=== PATIENT | male | born 1955 | race Caucasian/White ===

== ENCOUNTER 2020-06-17 08:47 | Day surgery (SDC) | payer BC ==
[~2020-06-17 08:47] MED LIST: FLEXERIL PO
[2020-06-17 09:22] VITALS: BP 216/117
[2020-07-08] MEDS ORDERED: METFORMIN500 M2 PO (10:32)
[2020-07-08] MEDS ORDERED: LISINOPRIL5 MG PO (10:32)
== END 2020-06-17 09:20 | disposition still patient (30) | DRG 951 ==
LOC: ENDO 08:47
PROVIDERS: ATTEND Surgery
DX: Z12.11 Encounter for screening for malignant neoplasm of colon (principal); Z53.09 Procedure and treatment not carried out because of other contraindication; I10 Essential (primary) hypertension; Z20.828 Contact with and (suspected) exposure to other viral communicable diseases

== ENCOUNTER 2020-06-17 09:39 | Emergency (ER) | payer BC ==
[~2020-06-17] VITALS: Ht 177.8 cm; Wt 102.7 kg
[2020-06-17 10:35] LABS: HEMATOCRIT 49.2 % (39.0-50.0); HEMOGLOBIN 17.1 g/dl (14.0-18.0); IMMATURE GRANULOCYTES 0.3 % (0.0-5.0); MEAN CELL VOLUME 90.4 fL CALC (80.0-100.0); MEAN CORPUSCULAR HGB 31.4 pG CALC (26.0-32.0); MEAN CORPUSCULAR HGB CONC 34.8 g/dL CAL (32.0-36.0); NEUT# 5.13 thou/uL (1.82-7.42); RED BLOOD COUNT 5.44 mill/uL (4.70-6.10); RED CELL DISTRI WIDTH 11.9 % (11.5-15.5)
[2020-06-17 10:45] LABS: URINE BLOOD DIPSTICK TRACE-LYSED (NEGATIVE); URINE COLOR YELLOW; URINE GLUCOSE - DIPSTICK 500 mg/dL (NEGATIVE); URINE KETONE >=80 mg/dL (NEGATIVE); URINE LEUK ESTERASE NEGATIVE (NEGATIVE); URINE NITRITE - DIPSTICK NEGATIVE (Negative); URINE SPECIFIC GRAVITY 1.025; URINE UROBILINOGEN - DIPSTICK 0.2 E.U./dL (0.2)
[2020-06-17 10:50] LABS: ALBUMIN 4.4 g/dL (3.2-5.0); ALKALINE PHOSPHATASE 81 u/l (38-126); ANION GAP 16 (6-22 (CALC)); BILIRUBIN, TOTAL 2.6 mg/dL (0.0-1.4); BUN 13 mg/dL (8-23); BUN/CREATININE RATIO 19 (12-20 (CALC)); CARBON DIOXIDE 25 mmol/l (22-30); CHLORIDE 103 mmol/l (95-108); CREATININE 0.7 mg/dL (0.7-1.3); GFR > 60 ML/MIN (>=60 (CALC)); GFR FOR AFR.AMER. > 60 ML/MIN (>=60 (CALC)); POTASSIUM 4.3 mmol/l (3.5-5.1); SGOT/AST 58 u/l (19-48); SODIUM 139 mmol/l (137-146); TOTAL PROTEIN 7.6 g/dL (6.3-8.2)
[2020-06-17 10:55] LABS: URINE BILIRUBIN - DIPSTICK SMALL (NEGATIVE); URINE PROTEIN - DIPSTICK Trace mg/dL (NEG-TRACE)
[2020-06-17 12:17] VITALS: BP 151/97
== END 2020-06-17 12:17 | disposition home or self-care (01) | DRG 305 ==
LOC: ED 09:39
DX: I10 Essential (primary) hypertension (principal); R73.9 Hyperglycemia, unspecified; R74.8 Abnormal levels of other serum enzymes; E80.6 Other disorders of bilirubin metabolism

== ENCOUNTER 2020-07-15 08:34 | Day surgery (SDC) | payer BC ==
--- NOTE | 2020-07-08 09:45 | NUR ---
PATIENT'S CALLED, RX FOR MEDICATION FOR COLONOSCOPY. PREVIOUS PROCEDURE CANCELLED DUE TO ELEVATED BLOOD PRESSURE. PER PHYSICIAN, RX MARY ANN LEVINE. USE DIRECTED, CALLED INTO [facility], SPOKE WITH [facility]EC[facility]. ADVISED PT MEDICATION WAS CALLED IN. STATED WILL PBX TECHNICIAN AND CALL US IF NEEDED.
[~2020-07-15 08:34] MED LIST changes: +LISINOPRIL5 MG PO; +METFORMIN500 M2 PO
[2020-07-15 12:08] VITALS: BP 143/70
== END 2020-07-15 12:00 | disposition home or self-care (01) | DRG 951 ==
LOC: ENDO 08:34
PROVIDERS: ATTEND Surgery
PROC: 0DBL8ZX Excision of Transverse Colon, Via Natural or Artificial Opening Endoscopic, Diagnostic (ICD-10-PCS; principal; 2020-07-15)
DX: Z12.11 Encounter for screening for malignant neoplasm of colon (principal); D12.3 Benign neoplasm of transverse colon; K64.8 Other hemorrhoids; Z20.828 Contact with and (suspected) exposure to other viral communicable diseases